=== PATIENT | female | born 2000 | race Caucasian/White ===

== ENCOUNTER 2020-01-28 14:34 | Emergency (ER) | payer BC ==
[2020-01-28] MEDS ORDERED: ACETAMINOPHEN TAB 500 MG TAB PO STA (15:20)
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
--- NOTE | 2020-01-28 15:56 | XR ---
EXAMINATION TYPE: XR hand complete RT DATE OF EXAM: 01/28/2020 COMPARISON: NONE HISTORY: Pain TECHNIQUE: 3 views FINDINGS: Metacarpals are intact. I see no fracture nor dislocation. Joint spaces are normal. Soft ti ssues appear normal. IMPRESSION: Normal right hand exam.
[2020-01-28 17:43] VITALS: BP 119/66; PULSE 89; RESP 18; TEMP 98.2
== END 2020-01-28 17:49 | disposition home or self-care (01) ==
LOC: EC 14:34
DX: S02.40FA Zygomatic fracture, left side, initial encounter for closed fracture (principal); S09.22XA Traumatic rupture of left ear drum, initial encounter; Y04.0XXA Assault by unarmed brawl or fight, initial encounter; Y93.84 Activity, sleeping; Y92.003 Bedroom of unspecified non-institutional (private) residence as the place of occurrence of the external cause; Y07.9 Unspecified perpetrator of maltreatment and neglect
CPT/HCPCS: 70450; 70486; 72125; 99284

== ENCOUNTER → 2020-04-16 | Outpatient (CLI) | payer BC | END | disposition home or self-care (01) | LOC: LABWHC1 11:50 | PROVIDERS: ATTEND Pediatrics | DX: Z20.828 Contact with and (suspected) exposure to other viral communicable diseases (principal) | CPT/HCPCS: U0003; C9803 ==

== ENCOUNTER → 2020-04-27 | Outpatient (CLI) | payer BC | END | disposition home or self-care (01) | LOC: LABWHC1 14:21 | PROVIDERS: ATTEND Pediatrics | DX: Z20.828 Contact with and (suspected) exposure to other viral communicable diseases (principal) | CPT/HCPCS: U0003; C9803 ==

== ENCOUNTER 2021-01-09 19:45 | Emergency (ER) | payer OTHER, BC ==
[2021-01-09 20:02] VITALS: TEMP 99.7
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
[2021-01-09] MEDS ORDERED: IBUPROFEN 800 MG TAB PO STA (21:11)
[2021-01-09] MEDS ORDERED: methocarbamoL 750 MG TAB PO STA (21:11)
[2021-01-09 22:12] VITALS: RESP 16
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
[2021-01-09 23:26] VITALS: BP 119/86; PULSE 84
== END 2021-01-09 23:26 | disposition home or self-care (01) ==
LOC: EC 19:45 → SUPCPDRO 19:45 → EC 23:26
DX: S76.012A Strain of muscle, fascia and tendon of left hip, initial encounter (principal); R00.0 Tachycardia, unspecified; F17.290 Nicotine dependence, other tobacco product, uncomplicated; V49.40XA Driver injured in collision with unspecified motor vehicles in traffic accident, initial encounter; Y92.410 Unspecified street and highway as the place of occurrence of the external cause
CPT/HCPCS: 70450; 72170; 81025; 93005; 99285

== ENCOUNTER → 2022-12-03 | Outpatient (CLI) | payer BC ==
[2022-12-03 16:19] LABS: ALT 19 U/L (8-44); AST 18 U/L (13-35); Albumin 4.8 d/dL (3.8-4.9); Albumin/Globulin Ratio 1.78 Ratio (1.60-3.17); Alkaline Phosphatase 66 U/L (41-126); BUN/Creat Ratio 12.71 Ratio (12.00-20.00); Blood Urea Nitrogen 8.9 mg/dL (9.0-27.0); Calcium 10.4 mg/dL (8.7-10.3); Carbon Dioxide 26.4 mmol/L (21.6-31.8); Chloride 103 mmol/L (96-109); Chol/HDL Ratio 2.76 Ratio; Globulin 2.7 d/dL (1.6-3.3); Glucose 75 mg/dL (70-110); LDL Cholesterol,Calculated 82.8 mg/dL (0.0-131.0); Potassium 4.6 mmol/L (3.5-5.5); Sodium 141 mmol/L (135-145); Total Bilirubin 0.4 mg/dL (0.3-1.2); Total Protein 7.5 d/dL (6.2-8.2)
[2022-12-03 19:21] LABS: Basophils # (A) 0.03 X 10*3/uL (0.00-0.10); Basophils % (A) 0.3 %; Eosinophils # (A) 0.04 X 10*3/uL (0.04-0.35); Eosinophils % (A) 0.4 %; HCT 42.6 % (37.2-46.3); HGB 13.7 d/dL (12.0-15.0); Lymphocytes # (A) 1.98 X 10*3/uL (0.90-5.00); Lymphocytes % (A) 21.3 %; MCH 30.6 pg (27.0-32.0); MCHC 32.2 d/dL (32.0-37.0); MCV 95.1 FL (80.0-97.0); Mean Platelet Volume 11.4 FL (9.5-12.2); Monocytes # (A) 0.64 X 10*3/uL (0.20-1.00); Monocytes % (A) 6.9 %; NRBC Per 100 WBC 0 X 10*3/uL (0.00-0.01); Neutrophils # (A) 6.58 X 10*3/uL (1.80-7.70); Neutrophils % (A) 70.8 %; Platelet Count 236 X 10*3/uL (140-440); RBC 4.48 X 10*6/uL (4.10-5.20); RDW 13.8 % (11.5-14.5)
[2022-12-03 19:42] LABS: HIV 2 AB Non-Reactive (Non-Reactive); HIV AB P24 Non-Reactive (Non-Reactive); HIV P24 AG Non-Reactive (Non-Reactive)
== END | disposition home or self-care (01) ==
LOC: LABWHC1 08:20
PROVIDERS: ATTEND Nurse Practitioner Primary Care
DX: Z11.3 Encounter for screening for infections with a predominantly sexual mode of transmission (principal); E11.8 Type 2 diabetes mellitus with unspecified complications; E78.79 Other disorders of bile acid and cholesterol metabolism; D50.9 Iron deficiency anemia, unspecified; F41.1 Generalized anxiety disorder
CPT/HCPCS: 36415; 80053; 80061; 83036; 84443; 85025; 86780; 86803; 87390

== ENCOUNTER 2023-03-30 09:53 | Emergency (ER) | payer BC ==
[2023-03-30 10:07] VITALS: TEMP 98.1
--- NOTE | 2023-03-30 10:22 | ED ---
General Adult HPI - General Chief complaint: Abdominal Pain Stated complaint: Back Pain Time Seen by Provider: 03/30/23 10:07 Source: patient Mode of arrival: ambulatory Limitations: no limitations - History of Present Illness Initial comments: The patient's a 22-year-old female who has a history of ADHD who presents to the emergency room with left-sided flank pain that started 2 days ago. The patient denies any falls or injuries. She states she woke up with the pain and it has progressively worsened over the last 2 days. She states occasionally pain is worse with movement. She states it sometimes radiates down the left leg. Patient admits that she has had decreased urine output but denies any dysuria, hematuria or discolored urine. She denies any fevers or vomiting. Patient has a history of urinary tract infections but denies any history of back issues or kidney stones. She denies any history of IV drug use saddle anesthesia or loss of bowel or bladder control. She is able to ambulate without any weakness. - Related Data Home Medications Medication Instructions Recorded Confirmed Escitalopram Oxalate [Lexapro] 5 mg PO HS 01/09/21 01/09/21 Lisdexamfetamine Dimesylate 20 mg PO DAILY 01/09/21 01/09/21 [Vyvanse] Previous Rx's Medication Instructions Recorded methocarbamoL [Robaxin] 1,000 mg PO TID PRN #12 tab 01/09/21 Ketorolac [Toradol] 10 mg PO Q8HR #15 tab 03/30/23 Lidocaine 5% Patch [Lidoderm] 1 patch TOPICAL DAILY #10 patch 03/30/23 Sulfamethox-Tmp 800-160Mg [Bactrim 1 each PO Q12HR #20 tab 03/30/23 Ds] Allergies Allergy/AdvReac Type Severity Reaction Status Date / Time No Known Allergies Allergy Verified 03/30/23 10:05 Review of Systems ROS Statement: Those systems with pertinent positive or pertinent negative responses have been documented in the HPI. ROS Other: All systems not noted in ROS Statement are negative. Past Medical History Past Medical History: No Reported History Additional Past Medical History / Comment(s): Ruptured left ear drum, fractured History of Any Multi-Drug Resistant Organisms: None Reported Past Surgical History: No Surgical Hx Reported Past Psychological History: No Psychological Hx Reported Smoking Status: Vaper Past Alcohol Use History: None Reported Past Drug Use History: None Reported General Exam Limitations: no limitations General appearance: alert, in no apparent distress Head exam: Present: atraumatic Eye exam: Present: normal appearance ENT exam: Present: normal exam Neck exam: Present: normal inspection Respiratory exam: Present: normal lung sounds bilaterally Cardiovascular Exam: Present: regular rate, normal rhythm GI/Abdominal exam: Present: soft, other (Left-sided flank pain, CVA tenderness no midline tenderness. No right lower quadrant or left lower quadrant abdominal pain. No rebound tenderness or peritoneal signs. No abdominal distention.) Extremities exam: Present: normal inspection, full ROM Back exam: Present: normal inspection, full ROM, CVA tenderness (L) (EHL intact bilaterally. negative straight leg test, no rash no vertebral point ten derness,able to ambulate with a steady gait ) Course Vital Signs 03/30/23 10:03 Temperature 98.1 F Pulse Rate 79 Respiratory 18 Rate Blood Pressure 111/85 O2 Sat by Pulse 99 Oximetry - Reevaluation(s) Reevaluation #1: 03/30/23 14:09 Patient's [facility] emergency room. I discussed lab and imaging results with patient. Patient has urinary tract infection seen on the UA. Lab work is unremarkable. Computed tomography scan is negative for any obvious kidney stone or signs of pyelonephritis. The musculoskeletal of the spine is within normal limits and there is no signs of acute changes. Patient is neurologically intact. She denies any saddle anesthesia or loss of bowel or bladder control therefore no MRI was ordered today. Patient is able to ambulate with a steady gait and there is no weakness. She is neurologically intact. I discussed treatment plan and follow-up. I discussed signs return to the emergency room including but not limited to any loss of bowel or bladder control, uncontrolled fevers, uncontrolled vomiting or any concerning symptoms. Medical Decision Making - Medical Decision Making Was pt. sent in by a medical professional or institution (, PA, EXPLOSIVE ORDNANCE DISPOSAL TECHNICIAN, urgent care, hospital, or fdc...) When possible be specific @ -[No] Did you speak to anyone other than the patient for history (EMS, parent, family, police, friend...)? What history was obtained from this source @ -[No] Did you review nursing and triage notes (agree or disagree)? Why? @ -[I reviewed and agree with nursing and triage notes] Were old charts reviewed (outside hosp., previous admission, EMS record, old EKG, old radiological studies, urgent care reports/EKG's, fdc records)? Report findings @ -[No old charts were reviewed] Differential Diagnosis (chest pain, altered mental status, abdominal pain women, abdominal pain men, vaginal bleeding, weakness, fever, dyspnea, syncope, headache, dizziness, GI bleed, back pain, seizure, CVA, palpatations, mental health, musculoskeletal)? @ -Back pain, muscle spasm, urinary tract infection, kidney stone EKG interpreted by me (3pts min.). @ -[As above] X-rays interpreted by me (1pt min.). @ -[None done] CT interpreted by me (1pt min.). @ -CT is negative for any obvious mass or obstruction however radiology report is pending for confirmation of acute changes. U/S interpreted by me (1pt. min.). @ -[None done] What testing was considered but not performed or refused? (CT, X-rays, U/S, labs)? Why? @ -[None] What meds were considered but not given or refused? Why? @ -[None] Did you discuss the management of the patient with other professionals (professionals i.e. Dr., PA, EXPLOSIVE ORDNANCE DISPOSAL TECHNICIAN, lab, RT, psych nurse, social media marketing specialist, software engineering specialist, teacher, tactical/mobile watch officer, correctional case records supervisor)? Give summary @ -I discussed patient's symptoms workup and disposition with attending ED physician Dr. Casarez today. Was smoking cessation discussed for >3mins.? @ -[No] Was critical care preformed (if so, how long)? @ -[No] Were there social determinants of health that impacted care today? How? (Homelessness, low income, unemployed, alcoholism, drug addiction, transportation, low edu. Level, literacy, decrease access to med. care, correction, rehab)? @ -[No] Was there de-escalation of care discussed even if they declined (Discuss DNR or withdrawal of care, Hospice)? DNR status @ -[No] What co-morbidities impacted this encounter? (DM, HTN, Smoking, COPD, CAD, Cancer, CVA, ARF, Chemo, Hep., AIDS, mental health diagnosis, sleep apnea, morbid obesity)? @ -[None] Was patient admitted / discharged? Hospital course, mention meds given and route, prescriptions, significant lab abnormalities, going to OR and other pertinent info. @ -The patient's well appearing in the emergency room. She is nontoxic appearing and has no neurological symptoms. She is able to be with a steady gait and denies any saddle anesthesia or loss of bowel or bladder control therefore there is no indication that MRI or admission is required at this time. Patient has urinary tract infection that may be treated as an outpatient with oral antibiotics. I did discuss following up with the primary care physician and urologist as needed. We did discuss signs to return to the emergency room including but not limited to any uncontrolled fevers uncontrolled pain uncontrolled vomiting or new concerning symptoms while on antibiotics. The patient understands and agrees to this plan. Undiagnosed new problem with uncertain prognosis? @ -[No] Drug Therapy requiring intensive monitoring for toxicity (Heparin, Nitro, Insulin, Cardizem)? @ -[No] Were any procedures done? @ -[No] Diagnosis/symptom? @ -UTI, back pain Acute, or Chronic, or Acute on Chronic? @ -Acute Uncomplicated (without systemic symptoms) or Complicated (systemic symptoms)? @ -[default] Side effects of treatment? @ -[No] Exacerbation, Progression, or Severe Exacerbation? @ -[No] Poses a threat to life or bodily function? How? (Chest pain, USA, SD, pneumonia, PE, COPD, DKA, ARF, appy, cholecystitis, CVA, Diverticulitis, Homicidal, Suicidal, threat to staff... and all critical care pts) @ -[No] - Lab Data Result diagrams: 03/30/23 12:35 03/30/23 12:35 Lab Results 03/30/23 03/30/23 03/30/23 Range/Units 10:34 10:34 12:35 WBC 7.7 (3.8-10.6) k/uL RBC 4.67 (3.80-5.40) m/uL Hgb 14.0 (11.4-16.0) gm/dL Hct 42.4 (34.0-46.0) % MCV 90.7 (80.0-100.0) fL MCH 30.1 (25.0-35.0) pg MCHC 33.1 (31.0-37.0) g/dL RDW 12.8 (11.5-15.5) % Plt Count 257 (150-450) k/uL MPV 7.6 Neutrophils % 62 % Lymphocytes % 31 % Monocytes % 5 % Eosinophils % 0 % Basophils % 0 % Neutrophils # 4.8 (1.3-7.7) k/uL Lymphocytes # 2.4 (1.0-4.8) k/uL Monocytes # 0.4 (0-1.0) k/uL Eosinophils # 0.0 (0-0.7) k/uL Basophils # 0.0 (0-0.2) k/uL Sodium (137-145) mmol/L Potassium (3.5-5.1) mmol/L Chloride (98-107) mmol/L Carbon Dioxide (22-30) mmol/L Anion Gap mmol/L BUN (7-17) mg/dL Creatinine (0.52-1.04) mg/dL Est GFR (CKD-EPI)AfAm (>60 ml/min/1.73 sqM) Est GFR (CKD-EPI)NonAf (>60 ml/min/1.73 sqM) Glucose (74-99) mg/dL Calcium (8.4-10.2) mg/dL Total Bilirubin (0.2-1.3) mg/dL AST (14-36) U/L ALT (4-34) U/L Alkaline Phosphatase (38-126) U/L Total Protein (6.3-8.2) g/dL Albumin (3.5-5.0) g/dL Urine Color Yellow Urine Appearance Cloudy H (Clear) Urine pH 5.5 (5.0-8.0) Ur Specific Widener 1.028 (1.001-1.035) Urine Protein Trace H (Negative) Urine Glucose (UA) Negative (Negative) Urine Ketones Negative (Negative) Urine Blood Trace H (Negative) Urine Nitrite Negative (Negative) Urine Bilirubin Negative (Negative) Urine Urobilinogen <2.0 (<2.0) mg/dL Ur Leukocyte Esterase Large H (Negative) Urine RBC 6 H (0-5) /hpf Urine WBC 17 H (0-5) /hpf Ur Squamous Epith Cells 23 H (0-4) /hpf Urine Mucus Many H (None) /hpf Urine HCG, Qual Not Detected (Not Detectd) 03/30/23 Range/Units 12:35 WBC (3.8-10.6) k/uL RBC (3.80-5.40) m/uL Hgb (11.4-16.0) gm/dL Hct (34.0-46.0) % MCV (80.0-100.0) fL MCH (25.0-35.0) pg MCHC (31.0-37.0) g/dL RDW (11.5-15.5) % Plt Count (150-450) k/uL MPV Neutrophils % % Lymphocytes % % Monocytes % % Eosinophils % % Basophils % % Neutrophils # (1.3-7.7) k/uL Lymphocytes # (1.0-4.8) k/uL Monocytes # (0-1.0) k/uL Eosinophils # (0-0.7) k/uL Basophils # (0-0.2) k/uL Sodium 139 (137-145) mmol/L Potassium 4.5 (3.5-5.1) mmol/L Chloride 103 (98-107) mmol/L Carbon Dioxide 24 (22-30) mmol/L Anion Gap 12 mmol/L BUN 11 (7-17) mg/dL Creatinine 0.58 (0.52-1.04) mg/dL Est GFR (CKD-EPI)AfAm >90 (>60 ml/min/1.73 sqM) Est GFR (CKD-EPI)NonAf >90 (>60 ml/min/1.73 sqM) Glucose 78 (74-99) mg/dL Calcium 9.9 (8.4-10.2) mg/dL Total Bilirubin 0.9 (0.2-1.3) mg/dL AST 32 (14-36) U/L ALT 29 (4-34) U/L Alkaline Phosphatase 56 (38-126) U/L Total Protein 8.4 H (6.3-8.2) g/dL Albumin 4.8 (3.5-5.0) g/dL Urine Color Urine Appearance (Clear) Urine pH (5.0-8.0) Ur Specific Widener (1.001-1.035) Urine Protein (Negative) Urine Glucose (UA) (Negative) Urine Ketones (Negative) Urine Blood (Negative) Urine Nitrite (Negative) Urine Bilirubin (Negative) Urine Urobilinogen (<2.0) mg/dL Ur Leukocyte Esterase (Negative) Urine RBC (0-5) /hpf Urine WBC (0-5) /hpf Ur Squamous Epith Cells (0-4) /hpf Urine Mucus (None) /hpf Urine HCG, Qual (Not Detectd) - Radiology Data Radiology results: report reviewed, image reviewed Disposition Clinical Impression: UTI (urinary tract infection), Back pain Disposition: HOME SELF-CARE Condition: Good Instructions (If sedation given, give patient instructions): Urinary Tract Infection in Women (ED), Back Pain (ED) Is patient prescribed a controlled substance at d/c from ED?: No Referrals: Adair Bazzi MD [Primary Care Provider] - 1-2 days Chriss Sinha MD [STAFF PHYSICIAN] - 1-2 days
[2023-03-30 11:09] LABS: Appearance,Urine Cloudy (Clear); Bilirubin,Urine Negative (Negative); Blood,Urine Trace (Negative); Color,Urine Yellow; Glucose,Urine (UA) Negative (Negative); Ketones,Urine Negative (Negative); Leukocyte Esterase,Urine Large (Negative); Mucus,Urine Many /hpf; Nitrite,Urine Negative (Negative); PH, Urine 5.5 (5.0-8.0); Protein,Urine Trace (Negative); RBC,Urine 6 /hpf (0-5); Specific Gravity,Urine 1.028 (1.001-1.035); Squamous Epithelial Cell,Urine 23 /hpf (0-4); Urobilinogen,Urine <2.0 mg/dL (<2.0); WBC,Urine 17 /hpf (0-5)
[2023-03-30] MEDS ORDERED: SODIUM CHLORIDE 0.9% 500 ML 500 ML IV STA (11:58)
[2023-03-30] MEDS ORDERED: KETOROLAC 15 MG/ML 1 ML VIAL IVP STA (11:58)
--- NOTE | 2023-03-30 12:36 | CT ---
EXAMINATION TYPE: CT renal stones wo con CT DLP: 303.30 mGycm, Automated exposure control for dose reduction was used. DATE OF EXAM: 03/30/2023 12:31 PM COMPARISON: None CLINICAL INDICATION:Female, 22 years old with history of left flank pain; left flank pain TECHNIQUE: Renal stone protocol CT of the abdomen and pelvis without IV or oral contrast. Lack of IV or oral contrast limits evaluation of solid and hollow organ viscera. Coronal and sagittal reformats were performed. FINDINGS: LOWER CHEST: Unremarkable ABDOMEN LIVER: Unremarkable noncontrast appearance GALLBLADDER AND BILE DUCTS: Unremarkable noncontrast appearance PANCREAS: Unremarkable noncontrast appearance SPLEEN: Unremarkable noncontrast appearance ADRENAL GLANDS: Unremarkable noncontrast appearance. KIDNEYS AND URETERS: No evidence of hydronephrosis or renal calculus. Duplicate of the left collectin g system. No ureteral calculi identified. PELVIS BLADDER: Unremarkable REPRODUCTIVE: Unremarkable noncontrast appearance ABDOMEN & PELVIS STOMACH AND BOWEL: Stomach and duodenum are unremarkable. No focal bowel wall thickening or surroundi ng inflammatory changes. No evidence of bowel obstruction. PERITONEUM: No evidence of pneumoperitoneum or free fluid. VASCULATURE: No evidence of aortic aneurysm. MUSCULOSKELETAL: No acute osseous abnormalities LYMPH NODES: No gross evidence for lymphadenopathy. SOFT TISSUE/ABDOMINAL WALL: Unremarkable IMPRESSION: No acute abdominal/pelvic process. No evidence for obstructive uropathy.
[2023-03-30 13:31] LABS: Basophils % (A) 0 %; Eosinophils % (A) 0 %; HCT 42.4 % (34.0-46.0); Lymphocytes # (A) 2.4 k/uL (1.0-4.8); Lymphocytes % (A) 31 %; MCH 30.1 pg (25.0-35.0); MCHC 33.1 g/dL (31.0-37.0); MCV 90.7 fL (80.0-100.0); Mean Platelet Volume 7.6; Monocytes # (A) 0.4 k/uL (0-1.0); Monocytes % (A) 5 %; Neutrophils # (A) 4.8 k/uL (1.3-7.7); Neutrophils % (A) 62 %; Platelet Count 257 k/uL (150-450); RBC 4.67 m/uL (3.80-5.40); RDW 12.8 % (11.5-15.5); WBC 7.7 k/uL (3.8-10.6)
[2023-03-30] MEDS ORDERED: SULFAMETHOX-TMP 800-160MG 1 EACH TAB PO STA (13:31)
[2023-03-30 13:45] LABS: ALT 29 U/L (4-34); African American GFR (CKD) >90 (>60 ml/min/1.73 sqM); Albumin 4.8 g/dL (3.5-5.0); Anion Gap 12 mmol/L; Blood Urea Nitrogen 11 mg/dL (7-17); Calcium 9.9 mg/dL (8.4-10.2); Carbon Dioxide 24 mmol/L (22-30); Chloride 103 mmol/L (98-107); Glucose 78 mg/dL (74-99); Non-African American GFR(CKD) >90 (>60 ml/min/1.73 sqM); Sodium 139 mmol/L (137-145); Total Bilirubin 0.9 mg/dL (0.2-1.3); Total Protein 8.4 g/dL (6.3-8.2)
[2023-03-30 14:01] LABS: AST 32 U/L (14-36); Alkaline Phosphatase 56 U/L (38-126); Potassium 4.5 mmol/L (3.5-5.1)
[2023-03-30 14:53] VITALS: BP 124/71; PULSE 81; RESP 16
== END 2023-03-30 14:50 | disposition home or self-care (01) ==
LOC: EC 09:53
DX: N39.0 Urinary tract infection, site not specified (principal); B95.1 Streptococcus, group B, as the cause of diseases classified elsewhere; B96.89 Other specified bacterial agents as the cause of diseases classified elsewhere; F90.9 Attention-deficit hyperactivity disorder, unspecified type; F17.290 Nicotine dependence, other tobacco product, uncomplicated; Z79.899 Other long term (current) drug therapy
CPT/HCPCS: 99284 ×2; 96374 ×2; 36415; 80053; 85025; 81001; 81025; 87086; 74150; J1885